=== PATIENT | male | born 1990 | race Caucasian/White ===

== ENCOUNTER 2020-08-27 04:11 | Observation (INO) | payer OTHER ==
[~2020-08-27] VITALS: Ht 170.2 cm; Wt 97.5 kg
[2020-08-27] MEDS ORDERED: LEXAPRO (04:28)
[2020-08-27 04:30] VITALS: BP 184/94
[2020-08-27 04:50] LABS: URINE BILIRUBIN NEGATIVE (Negative); URINE BLOOD NEGATIVE (Negative); URINE CLARITY TURBID; URINE COLOR YELLOW; URINE GLUCOSE-RANDOM NEGATIVE (Negative); URINE KETONES NEGATIVE (Negative); URINE LEUKOCYTES-REFLEX NEGATIVE (Negative); URINE NITRITE-REFLEX NEGATIVE (Negative); URINE PROTEIN NEGATIVE (Negative); URINE UROBILINOGEN 0.2 E.U./dl (0.2-1.0)
[2020-08-27 04:52] LABS: BACTERIA-REFLEX None Seen /HPF (None Seen); SQUAMOUS 0-3 Few /LPF (0-3); URINE RBC None Seen /HPF (0-2); URINE WBC-REFLEX None Seen /HPF (0-5)
[2020-08-27 04:53] LABS: AMORPHOUS PHOSPHATES Moderate /LPF (None Seen); CASTS None Seen /LPF (None Seen); MUCUS 0-3 Light strn/LPF (None Seen)
[2020-08-27 05:02] LABS: ABSOLUTE LYMPHOCYTES 1.5 thou/uL (0.8-5.3); ABSOLUTE MONOCYTES 0.5 thou/uL (0.0-1.2); ABSOLUTE NEUTROPHILS 6.8 thou/uL (1.6-8.1); BASOPHILS 0.5 %; EOSINOPHILS 0.5 %; HEMATOCRIT 43.3 % (42.0-52.0); HEMOGLOBIN 14.7 gm/dL (14.0-18.0); LYMPHOCYTES 17.1 %; MCH 30.8 pg (26.0-34.0); MCV 90.4 fL (80.0-100.0); MONOCYTES 5.8 %; MPV 7.7 fl. (7.2-11.1); NUCLEATED RBCS 0 /100WBC; PLATELET COUNT* 195 thou/uL (150-400); POLYS 76.1 %; RBC 4.78 mil/uL (4.50-6.00); RDW-CV 12.9 % (10.5-14.5); WBC 8.9 thou/uL (4.0-11.0)
[2020-08-27 05:14] LABS: CREATININE 1.1 mg/dL (0.6-1.3); POTASSIUM 3.9 mmol/L (3.5-5.1)
[2020-08-27 05:18] LABS: TOTAL BILIRUBIN 0.4 mg/dL (<0.1-1.0); TOTAL PROTEIN 7.3 g/dL (6.4-8.2)
--- NOTE | 2020-08-27 06:33 | NUR ---
RAY NOTIFIED UPON PT RETURN FROM CT.PT WAS NOT CONNECTED TO MONITOR HE WAS NOT PRIOR TO CT
[2020-08-27 09:46] VITALS: BP 114/63
[2020-08-27] MEDS ORDERED: Wellbutrin (09:53)
[2020-08-27 09:54] VITALS: BP 153/72
--- NOTE | 2020-08-27 10:13 | NUR ---
PT ADMITED WITH CHOLECYSTITIS. PT ORIENTED TO ROOM. PHYSICIAN NOTIFED OF PAIN AND NAUSEA. FALL RISK PRECAUTIONS IN PLACE. HOURLY ROUNDING COMPLETED. WILL CONTINUE TO MONITOR.
[2020-08-27 16:08] VITALS: BP 133/77
--- NOTE | 2020-08-27 17:14 | NUR ---
PT REMAINED ALERT AND ORIENTED. PT RESTING IN BED. PT C/O PAIN AND NAUSEA, MEDS GIVEN ORDERED. FALL RISK PRECAUTIONS IN PLACE. HOURLY ROUNDING COMPLETED. WILL CONTINUE TO MONITOR.
[2020-08-27 20:20] VITALS: BP 128/64
[2020-08-28 04:43] LABS: HEMATOCRIT 39.9 % (42.0-52.0); HEMOGLOBIN 13.5 gm/dL (14.0-18.0); MCHC 33.8 g/dL (28.0-37.0); MCV 91.6 fL (80.0-100.0); MPV 7.6 fl. (7.2-11.1); RBC 4.35 mil/uL (4.50-6.00); RDW-CV 12.8 % (10.5-14.5); WBC 9.9 thou/uL (4.0-11.0)
[2020-08-28 04:59] LABS: ALBUMIN 3.3 g/dL (3.4-5.0); CALCIUM 7.9 mg/dL (8.5-10.1); POTASSIUM 3.8 mmol/L (3.5-5.1); TOTAL BILIRUBIN 0.6 mg/dL (<0.1-1.0); TOTAL PROTEIN 6.5 g/dL (6.4-8.2)
--- NOTE | 2020-08-28 05:54 | NUR ---
PT NPO ALL SHIFT. PAIN MODERATE 4/10 THIS AM. RECEIVING MORPHINE AND ZOFRAN Q3. PATIENT COMPLIANT WITH CARE. ALERT AND ORIENTED AND UP AD RAJAN. RECEIVED ABX AND FLUIDS ORDERED.
[2020-08-28 07:15] VITALS: BP 121/67
--- NOTE | 2020-08-28 11:59 | NUR ---
Pt is A&O. Resides at home with a roommate. Active and independent. No DME. No hx of HH or SNF. Pt states that he plans to dc to his parent's home at discharge to recover. Pt stated that he will need a return to work note from No needs anticipated.
[2020-08-28 16:30] VITALS: BP 133/68
[2020-08-28 17:12] VITALS: BP 133/68
[2020-08-28 20:00] VITALS: BP 124/66
--- NOTE | 2020-08-29 04:48 | NUR ---
PATIENT SLEPT WELL DURING THIS SHIFT. PT WIOTH THREE ABDOMINAL INCISIONS WITH MINIMINAL BLOOD NOTED; SEALED WITH DURABOND. PT WITH SALINE LOCK IN LT HAND; PATENT. PT IS ON ROOM AIR AT 95%. PT VOIDS YELLOW URINE PER URINAL. PAIN MEDICATION GIVEN AT HS. DENIES NEEDS AT THIS TIME. FREQUENTLY USED ITEMS AND CALL LIGHT WITHIN REACH. SIDERAILS UPX2. WILL CONTINUE TO MONITOR.
[2020-08-29 05:57] VITALS: BP 121/67
[2020-08-29 07:35] VITALS: BP 118/61
[2020-08-29 10:19] VITALS: BP 133/68
--- NOTE | 2020-08-29 11:45 | NUR ---
PATIENT DISCHARGED TO HOME. DISCHARGE PAPERS REVIEWED AND SIGNED. PRESCRIPTION AND INFORMATION SHEETS GIVEN. IV REMOVED. PATIENT DENIES ANY FURTHER NEEDS. PATIENT PACKED OWN BELONGINGS. PATIENT TAKEN BY WHEELCHAIR TO EXIT. LEFT WITH FATHER.
[2020-08-29 11:57] VITALS: BP 133/68
--- NOTE | 2020-08-29 14:55 | OP ---
[address] [address] OPERATIVE REPORT Name: PEGGY GONZALEZ Room: [address] Melisa Rosario#: [id number] Admission: 08/27/20 Attend Phys: Carlos Delgado Discharge: 08/29/20 Date of : 86 Report #: [id number] THIS REPORT FOR: //name// cc: ASHWIN - Dulce family physician/PCP ASHWIN - No family physician/PCP ~ CC: [facility] physician/PCP Keira Marinelli DICTATED BY: Az López DO DATE OF SERVICE: 08/28/2020 PREOPERATIVE DIAGNOSIS: Acute cholecystitis. POSTOPERATIVE DIAGNOSIS: Gallbladder hydrops. SURGEON: Chang Fang DO PLUG AND MOLD FINISHER: Az López, PGY5 and Kevin Lino, MS4. OPERATION PERFORMED: Laparoscopic cholecystectomy. ANESTHESIA: General and TAP block. ESTIMATED BLOOD LOSS: 10 mL. SPECIMEN: Gallbladder. COMPLICATIONS: None. INDICATIONS: The patient is a 29-year-old male who presented to the Emergency Department with complaints of right upper quadrant pain. He was found to have cholelithiasis and thickened gallbladder wall. Physical exam and imaging were consistent with acute cholecystitis. The patient was informed of the risks and benefits of laparoscopic cholecystectomy with risks including but not limited to bleeding, infection, bile duct injury, bowel injury, hernia formation, need for open procedure, and need for reoperation. He voiced understanding and elected to proceed with surgery. DESCRIPTION OF PROCEDURE: After informed consent was obtained, the patient was brought to the operating room and placed in supine position. SCDs were on and running. Preoperative antibiotics were given. General anesthesia was administered with an ET tube. The patient was prepped and draped in the usual sterile fashion. A surgical pause was held to confirm proper patient and procedure. A vertical infraumbilical incision was made 2 cm in length using an 11 blade. Dissection was bluntly carried down to the fascia. [place] [address] OPERATIVE REPORT Name: PEGGY GONZALEZ Room: [address] Abraham#: [id number] Admission: 08/27/20 Attend Phys: Carlos Delgado Discharge: 08/29/20 Date of : 86 Report #: [id number] scored using cautery and elevated with 2 Kochers. Peritoneum was elevated with 2 Kellys and incised using Metzenbaum scissors. A finger was introduced through the peritoneal defect to ensure intra-abdominal location. Stay sutures using 0 Vicryl were placed on either side of the fascia. Magui trocar was introduced. The abdomen was insufflated. Camera was introduced and attention was turned towards the right upper quadrant. Gallbladder was acutely edematous and inflamed and quite distended. The patient was positioned head up and right side up. A 5 mm port was placed in the epigastrium under direct visualization. Two additional ports in the right upper quadrant, 5 mm in size were placed under direct visualization. The gallbladder was grasped and elevated. Upon grasping the body of the gallbladder, some hydropic fluid was expressed from the gallbladder. The gallbladder was elevated over the liver. The peritoneum overlying the hepatocystic triangle was incised using cautery. The peritoneal dissection was carried laterally and then medially. Blunt dissection was used to circumferentially dissect the cystic duct and cystic artery free until a critical view of safety was obtained with 2 and only two structures entering the gallbladder, the cystic duct and the cystic artery. Once a critical view of safety was obtained, laparoscopic clip master fire control technician was used to doubly clip the proximal cystic duct and cystic artery. One clip was then used on the distal cystic duct and cystic artery. Both were divided using laparoscopic jodi in between the proximal and distal clips. The gallbladder was then elevated and dissected free from the liver bed using cautery. Once completely detached, the gallbladder was placed within an EndoCatch bag and placed aside. Cautery was used for hemostasis of the liver bed. The clips were inspected. The cystic duct stump did not have any bile leak. The cystic artery stump was hemostatic. The liver bed was hemostatic. Right upper quadrant was thoroughly irrigated, suctioned until the effluent was clear. The patient was positioned supine. Right upper quadrant was suctioned. All ports were removed under direct visualization. Abdomen was desufflated. The gallbladder was removed through the umbilical incision. Previous stay sutures were elevated. A single [id number] was used to close the fascia using 0 Vicryl. Stay sutures were removed. The umbilical incision was closed in layered fashion using 3-0 Vicryl, 4-0 Monocryl. Remainder of skin was closed using 4-0 Monocryl. Wounds were cleansed and dressed with Dermabond. All counts were correct. The patient was provided with bilateral transversus abdominis plane blocks by anesthesia, emerged from general anesthesia and transferred to PACU in stable condition. <ELECTRONICALLY SIGNED> By: Chang Fang DO 08/29/20 1455 1628 1705Chang Fang DO /nt
--- NOTE | 2020-08-30 17:06 | PATH ---
[facility] [address] [place] [address] PATHOLOGY RPT PROCEDURE Name: PEGGY PELLETIER Room: [address] Melisa Rosario#: [id number] Admission: 08/27/20 Date of : 86 Discharge: 08/29/20 Report #: [id number] Path Case #: [id number] [facility] Accession Number: [id number] . 01 Material submitted: . gallbladder - GALLBLADDER WITH CONTENTS . 01 Clinical history: . ACUTE CHOLECYSTITIS . 02 Diagnosis: Gallbladder with contents: - Chronic and acute erosive cholecystitis and cholelithiasis. . (EARNEST:mml; 08/30/2020) [facility] 08/30/2020 1552 Local . 02 Electronically signed: . Avila Herron MD, Pathologist NPI- [id number] . 01 Gross description: . The specimen is received in formalin, labeled "Peggy Pelletier gallbladder with contents". Received is an intact gallbladder measuring 8.5 x 3.1 x 2.8 cm in greatest dimensions displaying a pink-gregorio serosal surface. Opening the specimen reveals a velvety, light brown mucosa with a gallbladder wall thickness of 0.1 cm. Calculi are present displaying a bright yellow and multifaceted appearance, and no masses or lesions are noted grossly. Lace Paper Machine Operator sections, to include the proximal margin, are submitted in cassette A1. (CAA; 08/29/2020) QAC/QAC 08/29/2020 1800 Local . 02 Pathologist provided ICD-10: K80.12 . 02 CPT . 580287 Specimen Comment: A courtesy copy of this report has been sent to [phone] Specimen Comment: [phone] Specimen Comment: Report sent to / DR SCANLON Performed at: [address] [id number] MD Maxime Hartley MD Phone: [phone] Performed at: [address] [place] [address] PATHOLOGY RPT PROCEDURE Name: PEGGY PELLETIER Room: [address] Melisa Rosario#: [id number] Admission: 08/27/20 Date of : 86 Discharge: 08/29/20 Report #: [id number] Path Case #: [id number] [address] [place], [place] [id number] MD Avila Herron MD Phone: [phone]
== END 2020-08-29 11:45 | disposition home or self-care (01) ==
LOC: M.ERS 04:11 → M.3W 07:02 → M.TBA-ER 07:02 → M.3W 09:37
PROVIDERS: Personal Emergency Response Attendant; Surgery; ADMIT Internal Medicine; ATTEND Internal Medicine
DX: K80.12 Calculus of gallbladder with acute and chronic cholecystitis without obstruction (principal); F32.9 Major depressive disorder, single episode, unspecified; Z87.891 Personal history of nicotine dependence